=== PATIENT | female | born 1950 | race Caucasian/White ===

== ENCOUNTER 2022-04-06 02:59 | Emergency (ER) | payer MEDICARE, SELFPAY ==
[2022-04-06 03:02] VITALS: BP 109/67; PULSE 89; RESP 18; TEMP 36.4; O2SAT 97; BMI 22.1
--- NOTE | 2022-04-06 03:17 | EDS_ITS ---
HPI History of Present Illness Chief Complaint: Nausea/Vomiting/Diarrhea Informant: patient Onset/Context/Timing Onset: Yesterday Current Severity: Moderate Maximum Severity: Moderate Narrative Narrative: Patient presents with nausea and dry heaves along with diarrhea for the last 24 hours. She had chills yesterday. She had a mild cough. She is concerned that she has the flu. [facility] Medical History Anxiety Hypothyroidism Home Medications ondansetron 4 mg disintegrating tablet 4 mg PO Q8H PRN nausea and vomiting #10 tabs 04/06/22 [Rx Last Taken Unknown] potassium chloride 10 mEq capsule,extended release 20 meq PO DAILY #6 caps 04/06/22 [Rx Last Taken Unknown] Allergy/AdvReac Type Severity Reaction Status Date / Time No Known Allergies Allergy Verified 04/06/22 03:08 Social History Smoking Status: Never smoker ROS ROS ED Constitutional Constitutional ED: Reports chills Eyes Eyes: Denies change in vision or discharge from eye(s) ENT ENT ED: Denies discharge from eye(s), rhinorrhea or sore throat Cardiovascular Cardiovascular: Reports chest pain; Denies palpitations Respiratory/Chest Respiratory/Chest: Reports cough; Denies dyspnea Gastrointestinal Gastrointestinal: Reports abdominal pain, diarrhea, nausea and vomiting Genitourinary Genitourinary ED: Denies difficulty urinating or dysuria Musculoskeletal Musculoskeletal: Denies back pain or extremity pain Integumentary Denies Abrasions or rash Neurologic Neurologic: Denies headache(s) Psychiatric Psychiatric: Denies anxiety or depression Allergic/Immunologic Allergic/Immunologic ED: Denies lip swelling or urticaria EXAM Physical Exam Const Vital Signs: 04/06/22 03:02 04/06/22 04:37 Temperature 97.6 F L Temperature Source Oral Pulse Rate 89 67 Respiratory Rate 18 10 L Blood Pressure 109/67 101/60 Blood Pressure Mean 81 73 Pulse Ox 97 95 Oxygen Delivery Method Room Air Room Air Positive well nourished and well developed General Appearance ED: well developed HEENT Reports normocephalic and head/scalp atraumatic Eyes PERRL and EOMs intact bilaterally Neck supple Chest Wall inspection of chest normal and palpation of chest normal Resp normal respiratory effort and clear to auscultation bilaterally Cardio regular rate and regular rhythm GI non-tender Auscultation: hypoactive bowel sounds Palpation: soft Extremity normal to inspection Neuro oriented x3 and no sensory deficits noted Sensorium / Orientation: alert Motor Exam: strength 5/5 throughout Psych mental status grossly normal Skin no rashes or lesions noted MDM MDM MDM Narrative Medical decision making narrative: Patient is given Zofran and IV fluids along with a dose of IV Protonix. Lab work obtained along with swab for COVID and influenza. Lab Data Attestation: I reviewed the patient's lab results. Labs: Laboratory Results - last 24 hr 04/06/22 04/06/22 03:34 03:34 WBC 6.3 RBC 4.54 Hgb 14.3 Hct 43.8 MCV 96.5 MCH 31.5 MCHC 32.6 RDW Std Deviation 47.9 H RDW Coeff of Molly 13.3 Plt Count 196 MPV 11.0 Immature Gran % (Auto) 0.300 Neut % (Auto) 66.9 Lymph % (Auto) 13.9 L Hickman % (Auto) 15.9 H Eos % (Auto) 2.4 Baso % (Auto) 0.6 Absolute Neuts (auto) 4.2 Absolute Lymphs (auto) 0.88 Nucleated RBC % 0 Sodium 136 Potassium 3.4 L Chloride 101 Carbon Dioxide 27.0 Anion Gap 8 BUN 17 Creatinine 1.09 H Estim Creat Clear Calc 39.73 Est GFR (MDRD) Af Amer 64 Est GFR (MDRD) Non-Af 53 L BUN/Creatinine Ratio 15.6 Glucose 142 H Calcium 9.3 Total Bilirubin 0.40 Direct Bilirubin 0.12 AST 49 H ALT 41 Alkaline Phosphatase 94 Total Protein 8.1 Albumin 3.5 Globulin 4.6 H Lipase 106 EKG Initial EKG: Attestation: I personally reviewed and interpreted this EKG as follows: Interpretation: Sinus Rhythm (Sinus at 73 with no acute ischemia.) Treatment and Re-Evaluation Narrative: Repeat evaluation patient is feeling improved. Test results discussed with patient and at bedside. CBC reveals white count of 6.3 and hemoglobin of 14.3. No left shift noted. Chemistry studies reveal slightly low potassium at 3.4. BUN is normal at 17 but creatinine is 1.09. Glucose is 142. LFTs and lipase otherwise normal. Influenza test is negative but COVID test does return positive. I discussed Paxlovid with the patient and . She prefer not to take any of these medication and will continue supportive care at home. I will write her for Zofran as well as 3 days of potassium replacement. Return instructions given. Discharge Plan Triage Chief Complaint: Nausea/Vomiting/Diarrhea ED Provider: Zeinab Abdalla Dx/Rx/DC Orders Clinical Impression: COVID-19, Hypokalemia, Gastroenteritis Instructions: Coronavirus Disease 2019 (COVID-19): Overview, Coronavirus Disease 2019 (COVID-19): Caring for Yourself or Others Prescriptions: New ondansetron 4 mg tablet,disintegrating 4 mg PO Q8H PRN (Reason: nausea and vomiting) Qty: 10 0RF potassium chloride 10 mEq capsule, extended release 20 meq PO DAILY Qty: 6 0RF Primary Care Provider: Shanae Walker Referrals: Shanae Walker MD [Primary Care Provider] - 1-2 Weeks Disposition Disposition: Home, Self Care
[2022-04-06] MEDS: Ondansetron 4 MG/2 ML Vial IV (03:33)
[2022-04-06 04:02] LABS: Absolute Lymphocyte Count 0.88 X10^3/uL (0.83-4.51); Absolute Neutrophil Count 4.2 X10^3/uL (2.0-7.7); Basophil# 0.04 X10^3/uL; Basophil% 0.6 % (0-1); Eosinophil# 0.15 X10^3/uL; Eosinophils% 2.4 % (0-5); Hematocrit 43.8 % (37-47); Hemoglobin 14.3 g/dL (12.0-15.0); Lymphocyte # 0.88 X10^3/ul (0.83-4.51); Lymphocyte % 13.9 % (19-41); Mean Corp Hgb Conc 32.6 g/dL (32-36); Mean Corpuscular Hgb 31.5 pg (27.0-32.0); Mean Corpuscular Volume 96.5 fL (81-99); Monocyte# 1.01 X10^3/uL; Monocyte% 15.9 % (0-10); NRBC Flagged by Analyzer 0 % (0-5); Neutrophil # 4.24 X10^3/uL (2.7-7.7); Neutrophil % 66.9 % (47-70); Platelet Count 196 K/mm3 (150-450); RBC Distribution Width CV 13.3 % (11.6-14.6); RBC Distribution Width SD 47.9 fl (35.1-43.9); Red Blood Count 4.54 M/mm3 (4.2-5.4); White Blood Count 6.3 K/mm3 (4.4-11.0)
[2022-04-06 04:31] LABS: AST(SGOT) 49 U/L (15-37); Alanine Aminotransfer ALT/SGPT 41 U/L (13-56); Albumin, Serum 3.5 g/dL (3.2-5.0); Alkaline Phosphatase 94 U/L (45-117); Anion Gap 8 (5-15); BUN 17 mg/dL (7-18); BUN/Creat Ratio 15.6 RATIO (10-20); Bilirubin, Direct 0.12 mg/dL (0.00-0.30); Calcium,Total 9.3 mg/dL (8.5-10.1); Chloride 101 mmol/L (98-107); Creatinine, Serum 1.09 mg/dL (0.55-1.02); EST Glomerular Filtration Rate 53 mL/min (>60); Est Glom Filt Rate - Afr Amer 64 mL/min (>60); Estimated Creatinine Clearance 39.73 ml/min; Globulin 4.6 g/dL (2.2-4.2); Glucose 142 mg/dL (74-106); Lipase 106 U/L (73-393); Potassium 3.4 mmol/L (3.5-5.1); Protein, Total 8.1 g/dL (6.4-8.2); Sodium Level 136 mmol/L (136-145)
[2022-04-06 04:37] VITALS: BP 101/60; PULSE 67; RESP 10; O2SAT 95
[2022-04-06 04:55] VITALS: BP 110/64; PULSE 69; RESP 15; O2SAT 94
== END 2022-04-06 05:05 | disposition home or self-care (01) ==
PROVIDERS: Emergency Provider Emergency Medicine; PCP Internal Medicine; Visit Provider Emergency Medicine
DX: U07.1 COVID-19 (principal); K52.9 Noninfective gastroenteritis and colitis, unspecified; E87.6 Hypokalemia; F41.9 Anxiety disorder, unspecified; E03.9 Hypothyroidism, unspecified
CPT/HCPCS: 80048; 80076; 83690; 85025; 87428; 93005; 99285; J7030; A4216; J2405